=== PATIENT | female | born 1980 | race Caucasian/White ===

== ENCOUNTER → 2024-12-25 | Day surgery (SDC) | payer OTHER ==
--- NOTE | 2024-12-25 12:07 | RAD REPORT ---
EXAMINATION: ULTRASOUND GUIDED VACUUM-ASSISTED RIGHT BREAST CORE NEEDLE BIOPSY RIGHT breast core needle biopsy; percutaneous, using ultrasound guidance. Image guided placement, metallic localization clip, percutaneous. Post Bx mammogram: Separately reported CLINICAL INDICATION:. R92.8 INFORMED CONSENT: The risks, benefits, alternatives, and potential complications of ultrasound guided vacuum-assisted RIGHT breast biopsy were discussed with the patient. An informed consent sheet was signed. The risks include but are not limited to the following: bleeding, infection, vascular injury, organ injury, pneumothorax, allergic reaction, and the need for emergent surgery/procedures. BIOPSY TARGET: Right breast 2-3:00 position, Lateral approach. NEEDLE: 12 gauge Celero vacuum-assisted core biopsy needle, 2 cores. SEDATION: None. COMPLICATIONS: None. TECHNIQUE: Appropriate audible time out was performed. The skin was prepped and draped in the normal fashion. The soft tissues were anesthetized with lidocaine. Utilizing real-time ultrasound guidance, a vacuum-assisted core biopsy needle was placed into the breast location described or a ashish ewhat irregular hypoechoic 7 mm lesion is present with removal of tissue for pathology evaluation. Metallic clip was placed within the biopsied lesion under ultrasound guidance. Compression was held. Hemostasis was achieved. Sterile dressing was applied. Patient tolerated the procedure well without immediate complication. The technologist was in the room with the radiologist throughout the procedur e. IMPRESSION: 1.Successful ultrasound guided vacuum-assisted core biopsy of the RIGHT breast as described above. 2. Biopsy clip placed within the biopsied lesion.
--- NOTE | 2024-12-29 12:58 | RAD REPORT ---
EXAM DESCRIPTION: S/P CLIP PLACEMENT UNI COMPARISON: Procedural images of ultrasound-guided core biopsy of the same day. TECHNIQUE: Full field CC and MLO views of the right breast were obtained utilizing digital breast 3D tomosynthesis technique. Computer-aided detection was utilized. FINDINGS: Postbiopsy changes are present, with postbiopsy clip in satisfactory location in [location] to the target lesion. No hematoma. IMPRESSION: Postprocedural mammogram for clip localization as above. BI-Rads: Not indicated Density: B: There are scattered areas of fibroglandular density. *A negative x-ray report should not delay biopsy if a dominant or clinically suspicious mass is prese nt. 4.8% of cancers are not identified by x-ray. *A negative report may reinforce clinical impression. *Adenosis and dense breasts may obscure an underlying neoplasm. *False positive reports average 6-10%. Transcribed Date/Time: 12/29/2024 12:57 PM
== END ==
LOC: RAD 09:51
PROVIDERS: ATTEND Family Medicine
DX: D24.1 Benign neoplasm of right breast (principal)
CPT/HCPCS: 19083; 77065; 88305